=== PATIENT | female | born 1940 | race African-American/Black ===

== ENCOUNTER 2017-02-28 17:29 | Emergency (ER) | payer OTHER ==
[~2017-02-28] VITALS: Ht 149.9 cm; Wt 68.0 kg
[~2017-02-28 17:29] MED LIST: DIABETA; ELAVIL; GLUCOPHAGE1000 MG; HYDROCHLOROTH12.5 MG; LANTUS; LISINOPRIL; LORTAB 5 MG/5001 TA1 PO; MIRALAX255 GM PO; NORCO 5-325 TA1 EACH PO; NORFLEX100 MG PO; NOVOLIN R100 UNIT/1; PREMARIN; VITAMIN E1000 UNI3; ZOCOR; [UNRECOGNIZED DRUG - OTHER]
[2017-02-28 17:45] VITALS: BP 154/76
[2017-02-28] MEDS ORDERED: BACTRIM DS TAB1 EACH PO (17:46)
== END 2017-02-28 17:47 | disposition home or self-care (01) ==
LOC: ER 17:29
DX: S50.862A Insect bite (nonvenomous) of left forearm, initial encounter (principal); E11.9 Type 2 diabetes mellitus without complications; I10 Essential (primary) hypertension; Z96.651 Presence of right artificial knee joint; Z90.89 Acquired absence of other organs; Z90.710 Acquired absence of both cervix and uterus; Z79.4 Long term (current) use of insulin; Z88.8 Allergy status to other drugs, medicaments and biological substances; W57.XXXA Bitten or stung by nonvenomous insect and other nonvenomous arthropods, initial encounter; Y93.89 Activity, other specified; Y92.89 Other specified places as the place of occurrence of the external cause; Y99.8 Other external cause status

== ENCOUNTER 2017-11-15 08:15 | Emergency (ER) | payer OTHER ==
[~2017-11-15] VITALS: Ht 165.1 cm; Wt 68.0 kg
[~2017-11-15 08:15] MED LIST changes: +ASPIR 8181 MG PO; +BACTRIM DS TAB1 EACH PO; +COZAAR 25 MG TA25 M1 PO; +PREDNISONE 20 M20 MG PO; +PREDNISONE50 MG PO; +RESTORIL7.5 M1 PO; +ZOCOR20 MG PO
[2018-01-08] MEDS ORDERED: REGLAN 10 MG TA10 MG PO (18:19)
== END 2017-11-15 09:21 | disposition home or self-care (01) ==
LOC: ER 08:15
DX: S09.90XA Unspecified injury of head, initial encounter (principal); S20.311A Abrasion of right front wall of thorax, initial encounter; W19.XXXA Unspecified fall, initial encounter; Y93.89 Activity, other specified; Y92.89 Other specified places as the place of occurrence of the external cause; Y99.8 Other external cause status; I10 Essential (primary) hypertension; E11.9 Type 2 diabetes mellitus without complications